=== PATIENT | female | born 1995 | race African-American/Black ===

== ENCOUNTER 2018-06-03 00:57 | Emergency (ER) | payer SELFPAY ==
[~2018-06-03] VITALS: Ht 157.5 cm; Wt 46.0 kg
[2018-06-03 04:19] VITALS: BP 103/63
== END 2018-06-03 04:24 | disposition home or self-care (01) ==
LOC: ER 00:57
DX: F10.10 Alcohol abuse, uncomplicated (principal); Y90.9 Presence of alcohol in blood, level not specified
CPT/HCPCS: 99283